=== PATIENT | male | born 1990 | race Caucasian/White ===

== ENCOUNTER 2020-04-23 13:11 | Emergency (ER) | payer SELFPAY ==
[~2020-04-23] VITALS: Ht 190.5 cm; Wt 136.2 kg
--- NOTE | 2020-04-23 13:48 | NUR ---
C/O CHEST PRESSURE IN CENTER X4 DAYS, PLACED ON VITALS AND EP TECH, CALL LIGHT PLACED WITHIN REACH.
[2020-04-23] MEDS ORDERED: LISI-167 PO (14:02)
[2020-04-23] MEDS ORDERED: LITH150C PO (14:02)
[2020-04-23 14:34] LABS: BASOPHILS # (AUTO) 0.02 x10^3/uL (0-0.1); BASOPHILS % (AUTO) 0 % (0-1); EOSINOPHILS # (AUTO) 0.09 x10^3/uL (0-0.4); EOSINOPHILS % (AUTO) 2 % (1-7); LYMPHOCYTES # (AUTO) 1.99 x10^3/uL (1-3.4); LYMPHOCYTES % (AUTO) 33 % (22-44); MD NO; MEAN CORPUSCULAR HEMOGLOBIN 29.7 pg (27.5-34.5); MEAN CORPUSCULAR HGB CONC 34.2 g/dL (33.2-36.2); MEAN PLATELET VOLUME 10.6 fL (7.4-10.4); MONOCYTES # (AUTO) 0.33 x10^3/uL (0.2-0.8); MONOCYTES % (AUTO) 5 % (2-9); NEUTROPHILS # (AUTO) 3.66 x10^3/uL (1.8-6.8); NEUTROPHILS % (AUTO) 60 % (42-75); PLATELET COUNT 184 x10^3/uL (130-400); RED BLOOD COUNT 5.09 x10^6/uL (4.38-5.82); RED CELL DISTRIBUTION WIDTH 13.1 % (9.4-14.8)
[2020-04-23 14:46] LABS: ALBUMIN 3.7 g/dL (3.4-5.0); ANION GAP 6 mmol/L (5-15); CALCIUM 9.5 mg/dL (8.5-10.1); CHLORIDE 110 mmol/L (98-107); CREATININE 1.08 mg/dL (0.7-1.3)
[2020-04-23 14:50] LABS: TROPONIN I < 0.015 ng/mL (0.000-0.045)
[2020-04-23 15:35] VITALS: BP 145/98
--- NOTE | 2020-04-23 15:37 | NUR ---
PT RESTING ON [facility], IN NAD, VSS. CALL LIGHT WITHIN REACH.
== END 2020-04-23 16:02 | disposition home or self-care (01) ==
LOC: ED 14:46
DX: R07.89 Other chest pain (principal); R06.02 Shortness of breath; I10 Essential (primary) hypertension
CPT/HCPCS: 36415; 71045; 80048; 82040; 84484; 85025; 93005; 99285

== ENCOUNTER 2021-01-16 18:13 | Emergency (ER) | payer MEDICAID ==
[~2021-01-16] VITALS: Ht 190.5 cm; Wt 119.1 kg
[~2021-01-16 18:13] MED LIST: LISI-167 PO; LITH150C PO
[2021-01-16 18:38] VITALS: BP 140/81
--- NOTE | 2021-01-16 21:17 | NUR ---
ERMD AT BEDSIDE FOR ASSESSMENT.
== END 2021-01-16 21:44 | disposition home or self-care (01) ==
LOC: ED 21:10
DX: M79.661 Pain in right lower leg (principal); I10 Essential (primary) hypertension
CPT/HCPCS: 99284